=== PATIENT | female | born 1955 | race Two or more races ===

== ENCOUNTER → 2018-08-11 | Outpatient (CLI) | payer MEDICAID | END | disposition home or self-care (01) | LOC: RAD 17:48 → MERGE 17:48 | PROVIDERS: ATTEND Physician Assistant | DX: I67.82 Cerebral ischemia (principal); G31.89 Other specified degenerative diseases of nervous system | CPT/HCPCS: 70450 ==

== ENCOUNTER → 2020-09-10 | Outpatient (CLI) | payer MEDICARE ==
[~2020-09-10] MED LIST: FENO160T PO; HYDR-2214 PO; LEVO100T5 PO; LISI-167 PO; NITR100C PO
[2020-09-10 10:33] LABS: MICROSCOPIC INDICATED
[2020-09-10 10:50] LABS: ALANINE AMINOTRANSFERASE 37 U/L (12-78); ALBUMIN 4.2 g/dL (3.4-5.0); ANION GAP 6 mmol/L (5-15); CALCIUM 9.4 mg/dL (8.5-10.1); CHLORIDE 109 mmol/L (98-107); CREATININE 0.74 mg/dL (0.55-1.02)
[2020-09-10 10:51] LABS: ALKALINE PHOSPHATASE 53 U/L (45-117); BILIRUBIN,TOTAL 0.7 mg/dL (0.2-1.0); TOTAL PROTEIN 8.2 g/dL (6.4-8.2)
== END | disposition home or self-care (01) ==
LOC: STAR 08:56
PROVIDERS: ATTEND Obstetrics & Gynecology Female Pelvic Medicine and Reconstructive Surgery
DX: Z01.818 Encounter for other preprocedural examination (principal); R10.2 Pelvic and perineal pain; N39.3 Stress incontinence (female) (male); N81.10 Cystocele, unspecified; N81.6 Rectocele; Z20.822 Contact with and (suspected) exposure to COVID-19
CPT/HCPCS: 36415; 80053; 81001; 87086; 93005; U0003; 87186

== ENCOUNTER 2020-09-16 09:52 | Day surgery (SDC) | payer MEDICARE ==
[~2020-09-16] VITALS: Ht 157.5 cm; Wt 58.3 kg
[~2020-09-16 09:52] MED LIST changes: +BUPIVACAINE/PF 0.25% ONE; +EPINEPHRINE 1 MG/ML, 1ML ONE; +NEOMY/POLYMYXIN B GU IRR. 1 ML ONE
[2020-09-16] MEDS ORDERED: BACTRIM PO (10:29)
[2020-09-16] MEDS ORDERED: OXYcodone 5 MG/5 ML ORAL.SOL UDC PO PRN (10:30)
[2020-09-16] MEDS ORDERED: hydrALAzine 20 MG/ML, 1ML IV PRN (10:30)
[2020-09-16] MEDS ORDERED: ONDANSETRON 2MG/ML, 2ML IVPush PRN (10:30)
[2020-09-16] MEDS ORDERED: CHLORHEXIDINE 15 ML UDC PO ONE (10:30)
[2020-09-16] MEDS ORDERED: LABETALOL 5MG/ML, 20ML IV PRN (10:30)
[2020-09-16] MEDS ORDERED: DIAZEPAM 5 MG/ML, 2ML IVPush PRN (10:30)
[2020-09-16] MEDS ORDERED: LACTATED RINGERS 1,000 ML IV SCH (10:30)
[2020-09-16] MEDS ORDERED: HYDROmorphone 1 MG/ML, 1ML INJ IVPush PRN (10:30)
[2020-09-16] MEDS ORDERED: FENTANYL PF 100 MCG/2ML IV PRN (10:30)
[2020-09-16] MEDS ORDERED: ACETAMINOPHEN 325 MG TABLET PO PRN (10:30)
[2020-09-16] MEDS ORDERED: CHLORHEXIDINE 15 ML UDC ONE (10:33)
[2020-09-16 10:46] VITALS: BP 125/81
[2020-09-16] MEDS ORDERED: MIDAZOLAM 1 MG/ML, 2ML ONE (12:16)
[2020-09-16] MEDS ORDERED: FENTANYL PF 100 MCG/2ML ONE (12:16)
[2020-09-16] MEDS ORDERED: PROPOFOL 10 MG/ML, 20ML ONE (12:19)
[2020-09-16] MEDS ORDERED: CEFAZOLIN 1,000 MG ONE ×2 (12:19)
[2020-09-16] MEDS ORDERED: KETOROLAC 30 MG/1 ML ONE (12:19)
[2020-09-16] MEDS ORDERED: ONDANSETRON 2MG/ML, 2ML ONE (12:19)
[2020-09-16] MEDS ORDERED: ACETAMINOPHEN 650 MG/20.3 ML UDC ONE (14:06)
== END 2020-09-16 15:55 | disposition home or self-care (01) ==
LOC: OUT 09:52
PROVIDERS: ATTEND Obstetrics & Gynecology Female Pelvic Medicine and Reconstructive Surgery
DX: N81.89 Other female genital prolapse (principal); T83.721A Exposure of implanted vaginal mesh into vagina, initial encounter; N39.46 Mixed incontinence; N81.11 Cystocele, midline; N81.5 Vaginal enterocele; N81.6 Rectocele; I10 Essential (primary) hypertension; E78.5 Hyperlipidemia, unspecified; K21.9 Gastro-esophageal reflux disease without esophagitis; E03.9 Hypothyroidism, unspecified; M19.90 Unspecified osteoarthritis, unspecified site; Z79.890 Hormone replacement therapy; Z79.899 Other long term (current) drug therapy; Z87.442 Personal history of urinary calculi; Z90.710 Acquired absence of both cervix and uterus; Y83.8 Other surgical procedures as the cause of abnormal reaction of the patient, or of later complication, without mention of misadventure at the time of the procedure
CPT/HCPCS: 57265; 57282; 57288; 57295; C1771; J0171; J0690; J1885; J2250; J2405; J2704; J3010; J7120

== ENCOUNTER 2021-02-03 08:20 | Day surgery (SDC) | payer MEDICARE ==
[2021-01-31 09:04] VITALS: BP 136/82
[2021-01-31 09:35] LABS: ALANINE AMINOTRANSFERASE 35 U/L (12-78); ALBUMIN 4.1 g/dL (3.4-5.0); ANION GAP 5 mmol/L (5-15); CHLORIDE 109 mmol/L (98-107); CREATININE 0.76 mg/dL (0.55-1.02)
[2021-01-31 09:37] LABS: ALKALINE PHOSPHATASE 57 U/L (45-117); BILIRUBIN,TOTAL 0.4 mg/dL (0.2-1.0); TOTAL PROTEIN 8.5 g/dL (6.4-8.2)
[~2021-02-03] VITALS: Ht 154.9 cm; Wt 58.4 kg
[~2021-02-03 08:20] MED LIST changes: +BACTRIM PO; +GENTAMICIN 80 MG/2 ML ONE; -NEOMY/POLYMYXIN B GU IRR. 1 ML ONE; +VANCOMYCIN 500 MG ONE
[2021-02-03] MEDS ORDERED: CHLORHEXIDINE 15 ML UDC ONE (08:33)
[2021-02-03 08:42] VITALS: BP 136/82
[2021-02-03] MEDS ORDERED: LACTATED RINGERS 1,000 ML IV SCH (09:00)
[2021-02-03] MEDS ORDERED: CHLORHEXIDINE 15 ML UDC PO ONE (09:00)
[2021-02-03] MEDS ORDERED: MULT-658 PO (09:15)
[2021-02-03] MEDS ORDERED: MIDAZOLAM 1 MG/ML, 2ML ONE (11:05)
[2021-02-03] MEDS ORDERED: GLYCOPYRROLATE 0.2MG/1ML, 5ML ONE (11:06)
[2021-02-03] MEDS ORDERED: ROCURONIUM 10MG/ML,5ML ONE (11:06)
[2021-02-03] MEDS ORDERED: FENTANYL PF 250 MCG/5ML ONE (11:06)
[2021-02-03] MEDS ORDERED: DEXAMETHASONE 4 MG/ML, 1ML ONE (11:06)
[2021-02-03] MEDS ORDERED: CEFAZOLIN 1,000 MG ONE (11:06)
[2021-02-03] MEDS ORDERED: NEOSTIGMINE 1 MG/ML, 10ML ONE (11:06)
[2021-02-03] MEDS ORDERED: PROPOFOL 10 MG/ML, 20ML ONE (11:06)
[2021-02-03] MEDS ORDERED: ONDANSETRON 2MG/ML, 2ML ONE (11:06)
[2021-02-03] MEDS ORDERED: HYDROmorphone 1 MG/ML, 1ML INJ IVPush PRN (13:30)
[2021-02-03] MEDS ORDERED: LABETALOL 5MG/ML, 20ML IV PRN (13:30)
[2021-02-03] MEDS ORDERED: morphine SULFATE 10 MG/ML, 1ML IVPush PRN (13:30)
[2021-02-03] MEDS ORDERED: FENTANYL PF 100 MCG/2ML IV PRN (13:30)
[2021-02-03] MEDS ORDERED: PROMETHAZINE 25 MG/ML, 1ML IVPush PRN (13:30)
[2021-02-03] MEDS ORDERED: hydrALAzine 20 MG/ML, 1ML IV PRN (13:30)
[2021-02-03] MEDS ORDERED: OXYcodone 5 MG/5 ML ORAL.SOL UDC PO PRN (13:30)
[2021-02-03] MEDS ORDERED: ACETAMINOPHEN 325 MG TABLET PO PRN (13:30)
[2021-02-03] MEDS ORDERED: MEPERIDINE/PF 25MG/0.5ML IVPush PRN (13:30)
[2021-02-03] MEDS ORDERED: HALOPERIDOL 5 MG/ML IV PRN (13:30)
[2021-02-03] MEDS ORDERED: KETOROLAC 30 MG/1 ML ONE (15:25)
[2021-02-03] MEDS ORDERED: KETOROLAC 30 MG/1 ML IVPush PRN (15:30)
== END 2021-02-03 16:44 | disposition home or self-care (01) ==
LOC: OUT 08:20
PROVIDERS: ATTEND Obstetrics & Gynecology Female Pelvic Medicine and Reconstructive Surgery
DX: N39.3 Stress incontinence (female) (male) (principal); N81.89 Other female genital prolapse; N81.6 Rectocele; N81.5 Vaginal enterocele; E03.9 Hypothyroidism, unspecified; I10 Essential (primary) hypertension; Z20.822 Contact with and (suspected) exposure to COVID-19; Z79.899 Other long term (current) drug therapy; Z98.890 Other specified postprocedural states
CPT/HCPCS: 36415; 57265; 57282; 57288; 80053; 93005; C1771; J0171; J0690; J1100; J1580; J1885; J2250; J2405; J2704; J2710; J3010; J3370; J7120; U0003; U0005